=== PATIENT | male | born 1965 | race Hispanic/Latino ===

== ENCOUNTER 2018-01-08 07:34 | Emergency (ER) | payer OTHER | END 2018-01-08 08:06 | disposition home or self-care (01) | LOC: EDH 07:34 | DX: H65.02 Acute serous otitis media, left ear (principal); E11.9 Type 2 diabetes mellitus without complications; M19.90 Unspecified osteoarthritis, unspecified site; Z72.0 Tobacco use ==

== ENCOUNTER → 2018-06-24 | Outpatient (CLI) | payer OTHER | END | disposition home or self-care (01) | LOC: RAH 10:29 | PROVIDERS: ATTEND Family Medicine | DX: J45.901 Unspecified asthma with (acute) exacerbation (principal); M47.895 Other spondylosis, thoracolumbar region | CPT/HCPCS: 71046 ==

== ENCOUNTER 2020-08-17 19:49 | Inpatient (IN) | payer MEDICAID, OTHER ==
[~2020-08-17] VITALS: Ht 152.4 cm; Wt 71.4 kg
[2020-08-17 21:58] LABS: ALBUMIN 2.3 g/dL (3.5-5.0); BILIRUBIN,TOTAL 1.9 mg/dL (0.2-1.0); CREATININE 3.5 mg/dL (0.5-1.5); POTASSIUM 4.6 mmol/L (3.5-5.1); TOTAL PROTEIN, SERUM 7.9 g/dL (6.0-8.3)
[2020-08-17 22:09] LABS: BASOPHILS % (AUTO) 0.5 % (0.0-5.0); HEMATOCRIT 29.8 % (42-54); LYMPHOCYTES % (AUTO) 10.2 % (21.0-51.0); MEAN CORPUSCULAR HEMOGLOBIN 35.7 pg (27.0-33.0); MEAN CORPUSCULAR HGB CONC 36.6 g/dL (32.0-36.0); MEAN CORPUSCULAR VOLUME 97.7 fL (79-99); MONOCYTES % (AUTO) 6.8 % (3.0-13.0); NEUTROPHILS % (AUTO) 77.8 % (40.0-77.0); NUCLEATED RED BLOOD CELLS 2.2 % (0.0-0.19); PLATELET COUNT (AUTO) 149 K/uL (130-400); RED BLOOD CELL COUNT(AUTO) 3.05 MIL/uL (4.50-6.20); RED CELL DISTRIBUTION WIDTH 18.1 % (11.0-15.5); WHITE BLOOD COUNT (AUTO) 20.3 K/uL (4.8-10.8)
[2020-08-17] MEDS ORDERED: 0.9%NACL 1000ML 1,000 ML IV ONE (22:18)
[2020-08-17] MEDS ORDERED: ZOSYN 3.375GM+NS 50ML 50 ML IV ONE (22:35)
[2020-08-17 22:38] LABS: ABG BASE EXCESS -14.2 mmol/L (-2.0-3.0); ABG HCO3 8.3 mmol/L (21.0-28.0); ABG OXYGEN SATURATION 99.2 % (95.0-99.0); ABG PCO2 16 mmHg (35-48)
[2020-08-17] MEDS ORDERED: PROPOFOL 1000 MG/100 ML 100 ML IV ONE (22:59)
[2020-08-17] MEDS ORDERED: FENTANYL 2500MCG+NS 250ML 250 ML IV ONE (22:59)
[2020-08-18] VITALS (30 sets, daily range): BP systolic 90–137; BP diastolic 38–100
[2020-08-18] MEDS ORDERED: ACETAMINOPHEN 325 MG TAB PO PRN
[2020-08-18] MEDS ORDERED: ZOLPIDEM TARTRATE 5 MG TAB PO PRN
[2020-08-18] MEDS ORDERED: VANCOMYCIN 1G/250ML KIT 250 ML IV ONE (00:22)
[2020-08-18 00:42] LABS: HEMOGLOBIN A1C 4.7 % (4.0-6.0)
[2020-08-18 01:16] LABS: INR 1.79 (0.85-1.15); PROTHROMBIN TIME 18.5 SEC (9.6-11.6)
[2020-08-18 01:17] LABS: PARTIAL THROMBOPLASTIN TIME 35.3 SEC (26.3-35.5)
[2020-08-18] MEDS ORDERED: LACTULOSE 20 GM/30 ML UDCUP ONE (01:32)
[2020-08-18] MEDS ORDERED: 0.9%NACL 1000ML 1,000 ML IV ONE ×2 (01:45→02:52)
[2020-08-18 02:02] LABS: AMPHET/METH SCREEN,URINE NEGATIVE (NEGATIVE); BARBITURATE SCREEN, URINE NEGATIVE (NEGATIVE); BENZODIAZEPINES SCREEN,URINE NEGATIVE (NEGATIVE); CANNABINOID SCREEN,URINE NEGATIVE (NEGATIVE); COCAINE SCREEN,URINE NEGATIVE (NEGATIVE); OPIATE SCREEN,URINE NEGATIVE (NEGATIVE); PHENCYCLIDINE SCREEN,URINE NEGATIVE (NEGATIVE)
[2020-08-18 05:43] LABS: BASOPHILS % (AUTO) 0.2 % (0.0-5.0); HEMATOCRIT 24.6 % (42-54); LYMPHOCYTES % (AUTO) 6.9 % (21.0-51.0); MEAN CORPUSCULAR HEMOGLOBIN 33.7 pg (27.0-33.0); MEAN CORPUSCULAR VOLUME 96.5 fL (79-99); MONOCYTES % (AUTO) 6.2 % (3.0-13.0); NEUTROPHILS % (AUTO) 82.5 % (40.0-77.0); PLATELET COUNT (AUTO) 105 K/uL (130-400); RED BLOOD CELL COUNT(AUTO) 2.55 MIL/uL (4.50-6.20); RED CELL DISTRIBUTION WIDTH 16.4 % (11.0-15.5); WHITE BLOOD COUNT (AUTO) 20.2 K/uL (4.8-10.8)
[2020-08-18 06:28] LABS: ALBUMIN 1.8 g/dL (3.5-5.0); BILIRUBIN,TOTAL 1.7 mg/dL (0.2-1.0); CREATININE 3.3 mg/dL (0.5-1.5); POTASSIUM 4.2 mmol/L (3.5-5.1); TOTAL PROTEIN, SERUM 5.8 g/dL (6.0-8.3)
[2020-08-18] MEDS ORDERED: PROPOFOL 1000 MG/100 ML IV PRN (06:30)
[2020-08-18] MEDS ORDERED: FENTANYL CITRATE PF 0.05 MG/ML 1,000 MCG in 0.9%NACL 100ML 100 ML IVPB SCH (06:30)
[2020-08-18 07:02] LABS: RETICULOCYTE % (AUTO) 6.94 % (0.42-2.23)
[2020-08-18 07:04] LABS: % IRON SATURATION 94.7 % (30-44)
[2020-08-18 08:24] LABS: THYROID STIMULATING HORMONE 1.8 uIU/mL (0.36-3.74)
[2020-08-18] MEDS ORDERED: RIFAXIMIN 200 MG TABLET GT SCH (09:00)
[2020-08-18] MEDS ORDERED: ENOXAPARIN SODIUM 30 MG/0.3 ML SQ SCH (09:00)
[2020-08-18] MEDS ORDERED: PANTOPRAZOLE 40MG INJ 80 MG in 0.9%NACL 100ML 100 ML IVP SCH (09:00)
[2020-08-18] MEDS ORDERED: PHARMACY COMMUNICATION MISC ONE (09:00)
[2020-08-18] MEDS ORDERED: PANTOPRAZOLE 40 MG/VIAL IVP SCH ×2 (09:00→21:00)
[2020-08-18] MEDS ORDERED: FAMOTIDINE 20MG VIAL IV SCH (09:00)
[2020-08-18] MEDS: DEXAMETHASONE SOD PHOSPHATE 4 MG/ML 1ML VIAL IVP SCH (09:48)
[2020-08-18] MEDS: LACTULOSE 20 GM/30 ML UDCUP GT SCH ×2 (09:50→16:09)
[2020-08-18] MEDS: ZOSYN 3.375GM+NS 50ML 50 ML IV SCH ×2 (09:51→22:29)
[2020-08-18] MEDS: PROPOFOL 1000 MG/100 ML 100 ML IV PRN (09:55)
[2020-08-18] MEDS: 0.9%NACL 1000ML 1,000 ML IV SCH ×2 (09:57→22:34)
[2020-08-18] MEDS ORDERED: CEFTRIAXONE 1G VIAL IVP SCH (10:45)
[2020-08-18 12:17] LABS: BASOPHILS % (AUTO) 0.2 % (0.0-5.0); HEMATOCRIT 26.3 % (42-54); LYMPHOCYTES % (AUTO) 7.8 % (21.0-51.0); MEAN CORPUSCULAR HEMOGLOBIN 34.2 pg (27.0-33.0); MEAN CORPUSCULAR VOLUME 97.8 fL (79-99); MONOCYTES % (AUTO) 5.2 % (3.0-13.0); NEUTROPHILS % (AUTO) 83.7 % (40.0-77.0); NUCLEATED RED BLOOD CELLS 1.2 % (0.0-0.19); PLATELET COUNT (AUTO) 100 K/uL (130-400); RED BLOOD CELL COUNT(AUTO) 2.69 MIL/uL (4.50-6.20); RED CELL DISTRIBUTION WIDTH 16.6 % (11.0-15.5); WHITE BLOOD COUNT (AUTO) 18.2 K/uL (4.8-10.8)
[2020-08-18 12:49] LABS: CREATININE 3.5 mg/dL (0.5-1.5); POTASSIUM 4.1 mmol/L (3.5-5.1)
[2020-08-18] MEDS ORDERED: ALBUMIN (HUMAN) 25% 50 ML IV SCH (14:15)
[2020-08-18] MEDS ORDERED: EPOETIN ALFA 10,000 UNIT/ML VIAL SQ SCH (16:00)
[2020-08-18] MEDS: LINEZOLID 600 MG/ISO-OSM 300 ML IV SCH (16:10)
[2020-08-18] MEDS: FUROSEMIDE 20MG VIAL IV SCH ×2 (16:11→22:30)
[2020-08-18] MEDS: ALBUMIN (HUMAN) 25% 50 ML IV SCH ×2 (16:11→22:29)
[2020-08-18] MEDS: PANTOPRAZOLE 40 MG/VIAL IVP SCH (22:29)
[2020-08-18] MEDS: RIFAXIMIN 550 MG TABLET GT SCH (22:31)
[2020-08-19] VITALS (33 sets, daily range): BP systolic 85–125; BP diastolic 44–85
[2020-08-19] MEDS: FENTANYL 2500MCG+NS 250ML 250 ML IV SCH (00:53)
[2020-08-19] MEDS: 0.9%NACL 1000ML 1,000 ML IV SCH ×2 (02:36→16:00)
[2020-08-19] MEDS: LACTULOSE 20 GM/30 ML UDCUP GT SCH ×3 (02:39→16:00)
[2020-08-19] MEDS: LINEZOLID 600 MG/ISO-OSM 300 ML IV SCH ×2 (02:40→14:01)
[2020-08-19 03:16] LABS: ABG HCO3 14.4 mmol/L (21.0-28.0); ABG OXYGEN SATURATION 96.9 % (95.0-99.0); ABG PCO2 23 mmHg (35-48)
[2020-08-19 04:21] LABS: BASOPHILS % (AUTO) 0.2 % (0.0-5.0); HEMATOCRIT 21.7 % (42-54); LYMPHOCYTES % (AUTO) 5.7 % (21.0-51.0); MEAN CORPUSCULAR HEMOGLOBIN 33.6 pg (27.0-33.0); MEAN CORPUSCULAR HGB CONC 33.6 g/dL (32.0-36.0); MONOCYTES % (AUTO) 3.6 % (3.0-13.0); NEUTROPHILS % (AUTO) 88.7 % (40.0-77.0); NUCLEATED RED BLOOD CELLS 0.8 % (0.0-0.19); PLATELET COUNT (AUTO) 76 K/uL (130-400); RED BLOOD CELL COUNT(AUTO) 2.17 MIL/uL (4.50-6.20); RED CELL DISTRIBUTION WIDTH 17.4 % (11.0-15.5); WHITE BLOOD COUNT (AUTO) 13.2 K/uL (4.8-10.8)
[2020-08-19 04:42] LABS: ALBUMIN 2.3 g/dL (3.5-5.0); BILIRUBIN,TOTAL 2.3 mg/dL (0.2-1.0); CREATININE 3.2 mg/dL (0.5-1.5); CRP QUANTITATIVE 27.1 mg/L (0.00-9.0); TOTAL PROTEIN, SERUM 6.1 g/dL (6.0-8.3)
[2020-08-19] MEDS: ALBUMIN (HUMAN) 25% 50 ML IV SCH (06:36)
[2020-08-19] MEDS: FUROSEMIDE 20MG VIAL IV SCH (06:37)
[2020-08-19] MEDS ORDERED: KETAMINE 50MG/ML SYRINGE 50 MG/ML DISP.SYRIN IV ONE (08:17)
[2020-08-19] MEDS ORDERED: ROCURONIUM 10MG/1ML SYR 10 MG/ML ML ONE (08:18)
[2020-08-19] MEDS: ZOSYN 3.375GM+NS 50ML 50 ML IV SCH ×2 (12:01→22:10)
[2020-08-19] MEDS: PANTOPRAZOLE 40 MG/VIAL IVP SCH ×2 (12:02→21:26)
[2020-08-19] MEDS: RIFAXIMIN 550 MG TABLET GT SCH ×2 (12:02→21:26)
[2020-08-19] MEDS: PROPOFOL 1000 MG/100 ML 100 ML IV PRN (12:03)
[2020-08-20] VITALS (28 sets, daily range): BP systolic 93–126; BP diastolic 35–89
[2020-08-20] MEDS: LINEZOLID 600 MG/ISO-OSM 300 ML IV SCH ×2 (02:37→16:51)
[2020-08-20] MEDS: FENTANYL 2500MCG+NS 250ML 250 ML IV SCH (02:38)
[2020-08-20] MEDS: LACTULOSE 20 GM/30 ML UDCUP GT SCH ×3 (02:43→16:52)
[2020-08-20] MEDS: 0.9%NACL 1000ML 1,000 ML IV SCH ×3 (02:44→22:13)
[2020-08-20 04:25] LABS: ABG BASE EXCESS -9.7 mmol/L (-2.0-3.0); ABG HCO3 15.8 mmol/L (21.0-28.0); ABG OXYGEN SATURATION 95.5 % (95.0-99.0); ABG PCO2 34 mmHg (35-48)
[2020-08-20 05:28] LABS: BASOPHILS % (AUTO) 0.1 % (0.0-5.0); HEMATOCRIT 24.3 % (42-54); LYMPHOCYTES % (AUTO) 5.3 % (21.0-51.0); MEAN CORPUSCULAR HEMOGLOBIN 33.6 pg (27.0-33.0); MEAN CORPUSCULAR HGB CONC 33.3 g/dL (32.0-36.0); MEAN CORPUSCULAR VOLUME 100.8 fL (79-99); MONOCYTES % (AUTO) 4.3 % (3.0-13.0); NEUTROPHILS % (AUTO) 87.8 % (40.0-77.0); NUCLEATED RED BLOOD CELLS 0.7 % (0.0-0.19); PLATELET COUNT (AUTO) 78 K/uL (130-400); RED BLOOD CELL COUNT(AUTO) 2.41 MIL/uL (4.50-6.20); RED CELL DISTRIBUTION WIDTH 18.4 % (11.0-15.5); WHITE BLOOD COUNT (AUTO) 15.7 K/uL (4.8-10.8)
[2020-08-20 05:59] LABS: ALBUMIN 2.4 g/dL (3.5-5.0); BILIRUBIN,TOTAL 2.6 mg/dL (0.2-1.0); CREATININE 2.9 mg/dL (0.5-1.5); CRP QUANTITATIVE 24.6 mg/L (0.00-9.0); POTASSIUM 3.9 mmol/L (3.5-5.1); TOTAL PROTEIN, SERUM 6.5 g/dL (6.0-8.3)
[2020-08-20] MEDS ORDERED: KETO.5OS OS (09:22)
[2020-08-20] MEDS ORDERED: CILO2.5OS OU (09:22)
[2020-08-20] MEDS ORDERED: OMEP20CA12 PO (09:22)
[2020-08-20] MEDS ORDERED: PROP20TA96 PO (09:22)
[2020-08-20] MEDS ORDERED: FURO40TA5 PO (09:22)
[2020-08-20] MEDS ORDERED: CYCL30DR OU (09:22)
[2020-08-20] MEDS ORDERED: OFLO35OS OS (09:22)
[2020-08-20] MEDS ORDERED: FOLI1 PO (09:22)
[2020-08-20] MEDS ORDERED: LACT10SO76 PO (09:22)
[2020-08-20] MEDS ORDERED: FERR325T22 PO (09:22)
[2020-08-20] MEDS ORDERED: DICL100G31 TP (09:22)
[2020-08-20] MEDS ORDERED: SPIR25TA6 PO (09:22)
[2020-08-20] MEDS ORDERED: MIDODRINE HCL 5 MG TABLET PO SCH (09:45)
[2020-08-20] MEDS: RIFAXIMIN 550 MG TABLET GT SCH ×2 (09:51→20:41)
[2020-08-20] MEDS: PANTOPRAZOLE 40 MG/VIAL IVP SCH ×2 (09:51→20:40)
[2020-08-20] MEDS: ZOSYN 3.375GM+NS 50ML 50 ML IV SCH (10:53)
[2020-08-20] MEDS: MIDODRINE HCL 5 MG TABLET PO SCH ×2 (16:51→20:41)
[2020-08-20] MEDS: PROPOFOL 1000 MG/100 ML 100 ML IV PRN (17:24)
[2020-08-21] VITALS (34 sets, daily range): BP systolic 104–142; BP diastolic 63–108
[2020-08-21] MEDS: LACTULOSE 20 GM/30 ML UDCUP GT SCH ×5 (00:46→20:52)
[2020-08-21] MEDS: LINEZOLID 600 MG/ISO-OSM 300 ML IV SCH (00:46)
[2020-08-21] MEDS: ZOSYN 3.375GM+NS 50ML 50 ML IV SCH ×3 (00:46→22:25)
[2020-08-21 05:10] LABS: BASOPHILS % (AUTO) 0.2 % (0.0-5.0); HEMATOCRIT 23.5 % (42-54); MEAN CORPUSCULAR HEMOGLOBIN 35.4 pg (27.0-33.0); MEAN CORPUSCULAR HGB CONC 34.5 g/dL (32.0-36.0); MEAN CORPUSCULAR VOLUME 102.6 fL (79-99); MONOCYTES % (AUTO) 5.9 % (3.0-13.0); NEUTROPHILS % (AUTO) 83.7 % (40.0-77.0); NUCLEATED RED BLOOD CELLS 0.9 % (0.0-0.19); PLATELET COUNT (AUTO) 67 K/uL (130-400); RED BLOOD CELL COUNT(AUTO) 2.29 MIL/uL (4.50-6.20); RED CELL DISTRIBUTION WIDTH 18.9 % (11.0-15.5); WHITE BLOOD COUNT (AUTO) 13.3 K/uL (4.8-10.8)
[2020-08-21 05:31] LABS: ALBUMIN 2.2 g/dL (3.5-5.0); BILIRUBIN,TOTAL 2.4 mg/dL (0.2-1.0); CREATININE 2.5 mg/dL (0.5-1.5); POTASSIUM 3.7 mmol/L (3.5-5.1)
[2020-08-21] MEDS: 0.9%NACL 1000ML 1,000 ML IV SCH (09:19)
[2020-08-21] MEDS: RIFAXIMIN 550 MG TABLET GT SCH ×2 (09:20→20:47)
[2020-08-21] MEDS: PANTOPRAZOLE 40 MG/VIAL IVP SCH ×2 (09:20→20:47)
[2020-08-21] MEDS: MIDODRINE HCL 5 MG TABLET PO SCH ×3 (09:20→20:47)
[2020-08-21 16:46] LABS: ABG HCO3 14.9 mmol/L (21.0-28.0); ABG PCO2 31 mmHg (35-48)
[2020-08-21] MEDS ORDERED: POTASSIUM CHLORIDE 20MEQ/100ML 100 ML IV PRN (17:00)
[2020-08-21] MEDS ORDERED: LIDOCAINE HCL-MPF 1% 2ML VIAL IV PRN (17:00)
[2020-08-21] MEDS: PROPOFOL 1000 MG/100 ML 100 ML IV PRN (18:32)
[2020-08-21] MEDS: FUROSEMIDE 40MG VIAL IV SCH (20:47)
[2020-08-21] MEDS ORDERED: PANTOPRAZOLE 40 MG/VIAL IVP SCH (21:00)
[2020-08-21] MEDS ORDERED: 0.9%NACL 1000ML 0 ML IV ONE (22:24)
[2020-08-21] MEDS: FENTANYL 2500MCG+NS 250ML 250 ML IV SCH (22:27)
[2020-08-22] VITALS (33 sets, daily range): BP systolic 100–137; BP diastolic 55–94
[2020-08-22] MEDS: LACTULOSE 20 GM/30 ML UDCUP GT SCH ×4 (02:24→21:18)
[2020-08-22 05:49] LABS: BASOPHILS % (AUTO) 0.1 % (0.0-5.0); EOSINOPHILS % (AUTO) 0.5 % (0.0-8.0); LYMPHOCYTES % (AUTO) 7.2 % (21.0-51.0); MEAN CORPUSCULAR HEMOGLOBIN 34.5 pg (27.0-33.0); MEAN CORPUSCULAR HGB CONC 33.1 g/dL (32.0-36.0); MEAN CORPUSCULAR VOLUME 104.4 fL (79-99); MONOCYTES % (AUTO) 5.5 % (3.0-13.0); NEUTROPHILS % (AUTO) 84.7 % (40.0-77.0); NUCLEATED RED BLOOD CELLS 0.8 % (0.0-0.19); PLATELET COUNT (AUTO) 69 K/uL (130-400); RED BLOOD CELL COUNT(AUTO) 2.49 MIL/uL (4.50-6.20); RED CELL DISTRIBUTION WIDTH 20.8 % (11.0-15.5); WHITE BLOOD COUNT (AUTO) 13.9 K/uL (4.8-10.8)
[2020-08-22 06:06] LABS: ALBUMIN 2.2 g/dL (3.5-5.0); BILIRUBIN,TOTAL 2.9 mg/dL (0.2-1.0); CREATININE 2.4 mg/dL (0.5-1.5); CRP QUANTITATIVE 32.2 mg/L (0.00-9.0); POTASSIUM 3.9 mmol/L (3.5-5.1); TOTAL PROTEIN, SERUM 6.1 g/dL (6.0-8.3)
[2020-08-22] MEDS: PANTOPRAZOLE 40 MG/VIAL IVP SCH ×2 (08:05→21:19)
[2020-08-22] MEDS: FUROSEMIDE 40MG VIAL IV SCH ×2 (08:05→21:18)
[2020-08-22] MEDS: RIFAXIMIN 550 MG TABLET GT SCH ×2 (08:05→21:18)
[2020-08-22] MEDS: MIDODRINE HCL 5 MG TABLET PO SCH ×4 (08:09→21:19)
[2020-08-22] MEDS ORDERED: DEXAMETHASONE SOD PHOSPHATE 4 MG/ML 1ML VIAL IVP SCH (09:00)
[2020-08-22] MEDS: ZOSYN 3.375GM+NS 50ML 50 ML IV SCH (12:49)
[2020-08-23] VITALS (29 sets, daily range): BP systolic 113–143; BP diastolic 68–101
[2020-08-23] MEDS: ZOSYN 3.375GM+NS 50ML 50 ML IV SCH ×3 (01:17→22:21)
[2020-08-23] MEDS: LACTULOSE 20 GM/30 ML UDCUP GT SCH ×4 (01:17→20:18)
[2020-08-23 05:00] LABS: CREATININE 2.5 mg/dL (0.5-1.5); CRP QUANTITATIVE 47.1 mg/L (0.00-9.0); POTASSIUM 4.2 mmol/L (3.5-5.1)
[2020-08-23 05:54] LABS: BASOPHILS % (AUTO) 0.2 % (0.0-5.0); EOSINOPHILS % (AUTO) 0.1 % (0.0-8.0); HEMATOCRIT 27.5 % (42-54); LYMPHOCYTES % (AUTO) 4.8 % (21.0-51.0); MEAN CORPUSCULAR HGB CONC 33.5 g/dL (32.0-36.0); MEAN CORPUSCULAR VOLUME 104.6 fL (79-99); MONOCYTES % (AUTO) 5.5 % (3.0-13.0); NEUTROPHILS % (AUTO) 87.5 % (40.0-77.0); NUCLEATED RED BLOOD CELLS 0.3 % (0.0-0.19); PLATELET COUNT (AUTO) 60 K/uL (130-400); RED BLOOD CELL COUNT(AUTO) 2.63 MIL/uL (4.50-6.20); RED CELL DISTRIBUTION WIDTH 22.4 % (11.0-15.5); WHITE BLOOD COUNT (AUTO) 16.7 K/uL (4.8-10.8)
[2020-08-23 06:38] LABS: ABG BASE EXCESS -9.1 mmol/L (-2.0-3.0); ABG HCO3 15.3 mmol/L (21.0-28.0); ABG OXYGEN SATURATION 95.6 % (95.0-99.0); ABG PCO2 30 mmHg (35-48)
[2020-08-23] MEDS: PANTOPRAZOLE 40 MG/VIAL IVP SCH ×2 (08:20→20:19)
[2020-08-23] MEDS: FUROSEMIDE 40MG VIAL IV SCH ×2 (08:20→20:19)
[2020-08-23] MEDS: MIDODRINE HCL 5 MG TABLET PO SCH ×3 (08:20→20:20)
[2020-08-23] MEDS: RIFAXIMIN 550 MG TABLET GT SCH ×2 (08:20→20:18)
[2020-08-23] MEDS ORDERED: DEXAMETHASONE SOD PHOSPHATE 4 MG/ML 1ML VIAL ONE (11:56)
[2020-08-23] MEDS: DEXAMETHASONE SOD PHOSPHATE 4 MG/ML 1ML VIAL IVP SCH (11:57)
[2020-08-23 17:20] LABS: MAGNESIUM 2.1 mg/dL (1.80-2.40); POTASSIUM 4.2 mmol/L (3.5-5.1)
[2020-08-24] VITALS (50 sets, daily range): BP systolic 54–176; BP diastolic 18–149
[2020-08-24] MEDS: LACTULOSE 20 GM/30 ML UDCUP GT SCH ×4 (01:25→21:00)
[2020-08-24 03:57] LABS: ABG BASE EXCESS -11.7 mmol/L (-2.0-3.0); ABG HCO3 11.8 mmol/L (21.0-28.0); ABG OXYGEN SATURATION 89.8 % (95.0-99.0); ABG PCO2 22 mmHg (35-48)
[2020-08-24 04:28] LABS: BASOPHILS % (AUTO) 0.1 % (0.0-5.0); HEMATOCRIT 28.5 % (42-54); LYMPHOCYTES % (AUTO) 4.3 % (21.0-51.0); MEAN CORPUSCULAR HEMOGLOBIN 37.2 pg (27.0-33.0); MEAN CORPUSCULAR HGB CONC 34.7 g/dL (32.0-36.0); MEAN CORPUSCULAR VOLUME 107.1 fL (79-99); MONOCYTES % (AUTO) 4.2 % (3.0-13.0); NEUTROPHILS % (AUTO) 89.6 % (40.0-77.0); NUCLEATED RED BLOOD CELLS 0.3 % (0.0-0.19); PLATELET COUNT (AUTO) 71 K/uL (130-400); RED BLOOD CELL COUNT(AUTO) 2.66 MIL/uL (4.50-6.20); WHITE BLOOD COUNT (AUTO) 17.8 K/uL (4.8-10.8)
[2020-08-24] MEDS: INSULIN HUMULIN R 100 UNIT/ML 3ML SQ SCH ×6 (04:30→22:22)
[2020-08-24 04:38] LABS: ALBUMIN 2.2 g/dL (3.5-5.0); BILIRUBIN,TOTAL 3.4 mg/dL (0.2-1.0); CREATININE 3.5 mg/dL (0.5-1.5); CRP QUANTITATIVE 58.6 mg/L (0.00-9.0); POTASSIUM 3.9 mmol/L (3.5-5.1); TOTAL PROTEIN, SERUM 6.6 g/dL (6.0-8.3)
[2020-08-24] MEDS: FENTANYL CITRATE PF 50 MCG/1 ML 2ML VIAL IVP PRN ×2 (07:19→07:58)
[2020-08-24] MEDS ORDERED: FENTANYL CITRATE PF 50 MCG/1 ML 2ML VIAL IVP SCH (07:45)
[2020-08-24] MEDS: RIFAXIMIN 550 MG TABLET GT SCH ×2 (07:58→21:50)
[2020-08-24] MEDS: PANTOPRAZOLE 40 MG/VIAL IVP SCH ×2 (07:58→21:00)
[2020-08-24] MEDS: FUROSEMIDE 40MG VIAL IV SCH (07:58)
[2020-08-24] MEDS: MIDODRINE HCL 5 MG TABLET PO SCH ×3 (08:46→21:50)
[2020-08-24] MEDS: DEXMEDETOMIDINE HCL 200 MCG in 0.9%NACL 50ML 50 ML IV SCH ×2 (08:49→15:18)
[2020-08-24] MEDS: ZOSYN 3.375GM+NS 50ML 50 ML IV SCH (13:44)
[2020-08-24] MEDS: ALBUMIN (HUMAN) 25% 50 ML IV SCH ×2 (13:45→22:22)
[2020-08-24] MEDS ORDERED: ALBUMIN (HUMAN) 25% 50 ML IV SCH (14:00)
[2020-08-24] MEDS ORDERED: 0.9% NACL 250ML 250 ML IV ONE (15:52)
[2020-08-24] MEDS: PHENYLEPHRINE HCL 50 MG in 0.9% NACL 250ML 250 ML IV PRN (17:01)
[2020-08-24 18:18] LABS: INR 3.31 (0.85-1.15); PROTHROMBIN TIME 32.4 SEC (9.6-11.6)
[2020-08-24 18:19] LABS: PARTIAL THROMBOPLASTIN TIME 60.1 SEC (26.3-35.5)
[2020-08-24 18:32] LABS: ALBUMIN 1.4 g/dL (3.5-5.0); BILIRUBIN,TOTAL 2.5 mg/dL (0.2-1.0); CREATININE 2.8 mg/dL (0.5-1.5); POTASSIUM 4.9 mmol/L (3.5-5.1); TOTAL PROTEIN, SERUM 4.9 g/dL (6.0-8.3)
[2020-08-24] MEDS ORDERED: VASOPRESSIN 20 UNITS in 0.9%NACL 100ML 100 ML IV SCH (18:45)
[2020-08-24] MEDS ORDERED: PHYTONADIONE 10 MG/1 ML AMP SQ SCH (19:30)
[2020-08-24] MEDS ORDERED: DEXMEDETOMIDINE HCL 400 MCG in 0.9%NACL 100ML 100 ML IV SCH (20:00)
[2020-08-24] MEDS ORDERED: DEXTROSE 50%-WATER 25 GM/50 ML VIAL IV SCH (20:00)
[2020-08-24] MEDS ORDERED: INSULIN GLARGINE 100 UNITS/ML 10 ML VIAL SQ ONE (21:00)
[2020-08-24] MEDS ORDERED: DEXTROSE 50%-WATER 50 ML DISP.SYRIN IV ONE (23:12)
[2020-08-25] VITALS (17 sets, daily range): BP systolic 81–126; BP diastolic 46–91
[2020-08-25] MEDS: ZOSYN 3.375GM+NS 50ML 50 ML IV SCH (01:35)
[2020-08-25] MEDS: LACTULOSE 20 GM/30 ML UDCUP GT SCH (02:00)
[2020-08-25] MEDS ORDERED: DEXTROSE 50%-WATER 25 GM/50 ML VIAL IV PRN (02:30)
[2020-08-25] MEDS ORDERED: DEXTROSE 50%-WATER 50 ML DISP.SYRIN IV ONE (04:06)
[2020-08-25] MEDS: INSULIN HUMULIN R 100 UNIT/ML 3ML SQ SCH ×3 (04:20→06:00)
[2020-08-25] MEDS: PHENYLEPHRINE HCL 50 MG in 0.9% NACL 250ML 250 ML IV PRN (04:33)
[2020-08-25] MEDS: ALBUMIN (HUMAN) 25% 50 ML IV SCH (06:07)
== END 2020-08-25 09:13 | disposition expired | DRG 720 ==
LOC: EDH 19:49 → EDHIP 19:50 → 2CH 08-18 05:15
PROVIDERS: ADMIT Internal Medicine; ATTEND Internal Medicine
PROC: 5A1955Z Respiratory Ventilation, Greater than 96 Consecutive Hours (ICD-10-PCS; principal; 2020-08-18)
PROC: 0BH17EZ Insertion of Endotracheal Airway into Trachea, Via Natural or Artificial Opening (ICD-10-PCS; 2020-08-18)
PROC: XW13325 Transfusion of Convalescent Plasma (Nonautologous) into Peripheral Vein, Percutaneous Approach, New Technology Group 5 (ICD-10-PCS; 2020-08-18)
PROC: 0DJ08ZZ Inspection of Upper Intestinal Tract, Via Natural or Artificial Opening Endoscopic (ICD-10-PCS; 2020-08-19)
DX: A41.9 Sepsis, unspecified organism (principal); U07.1 COVID-19; E43 Unspecified severe protein-calorie malnutrition; D64.9 Anemia, unspecified; D68.59 Other primary thrombophilia; N17.9 Acute kidney failure, unspecified; K70.40 Alcoholic hepatic failure without coma; J96.01 Acute respiratory failure with hypoxia; E87.2 Acidosis; D69.6 Thrombocytopenia, unspecified; K70.31 Alcoholic cirrhosis of liver with ascites; Z87.01 Personal history of pneumonia (recurrent); Z91.19 Patient's noncompliance with other medical treatment and regimen; N18.9 Chronic kidney disease, unspecified; Z68.30 Body mass index [BMI] 30.0-30.9, adult; E11.22 Type 2 diabetes mellitus with diabetic chronic kidney disease; I12.9 Hypertensive chronic kidney disease with stage 1 through stage 4 chronic kidney disease, or unspecified chronic kidney disease; E87.0 Hyperosmolality and hypernatremia; R65.21 Severe sepsis with septic shock; I95.89 Other hypotension; M19.90 Unspecified osteoarthritis, unspecified site; R53.81 Other malaise; K29.71 Gastritis, unspecified, with bleeding; K20.91 Esophagitis, unspecified with bleeding; K72.00 Acute and subacute hepatic failure without coma; J12.82 Pneumonia due to coronavirus disease 2019
CPT/HCPCS: 31500; 36415; 36430; 36600; 43235; 70450; 71045; 74018; 76700; 80048; 80053; 80305; 82140; 82728; 82803; 82948; 83036; 83540; 83550; 83605; 83735; 83880; 84132; 84145; 84300; 84443; 84484; 85014; 85018; 85025; 85045; 85378; 85610; 85651; 85730; 86140; 86156; 86850; 86870; 86900; 86901; 86927; 87040; 87088; 87426; 93005; 93306; 93356; 94002; 94003; 99291; C9113; G0378; J0885; J1100; J1650; J1940; J2020; J2370; J2543; J2704; J3010; J3370; J3480; J3490; J7030; J7050; J7070; P9047